=== PATIENT | male | born 1980 | race Caucasian/White ===

== ENCOUNTER 2021-08-30 10:49 | Emergency (ER) | payer OTHER, BC ==
[~2021-08-30] VITALS: Ht 182.9 cm; Wt 129.5 kg
[2021-08-30 10:52] VITALS: TEMP 98.5
[2021-08-30 11:59] VITALS: BP 148/70; PULSE 96
== END 2021-08-30 11:59 | disposition home or self-care (01) ==
LOC: COL.ER 10:49
DX: T70.0XXA Otitic barotrauma, initial encounter (principal); T20.16XA Burn of first degree of forehead and cheek, initial encounter; T21.11XA Burn of first degree of chest wall, initial encounter; Z28.310 Unvaccinated for COVID-19; X08.8XXA Exposure to other specified smoke, fire and flames, initial encounter